=== PATIENT | male | born 1990 | race African-American/Black ===

== ENCOUNTER 2018-08-23 13:02 | Observation (INO) | payer OTHER ==
[~2018-08-23] VITALS: Ht 190.5 cm; Wt 103.4 kg
[2018-08-23 14:20] VITALS: BP 155/73
[2018-08-23 15:18] LABS: ABSOLUTE NEUTROPHILS 8.3 thou/uL (1.4-8.2); BASOPHILS 0.4 % (0.0-2.0); EOSINOPHILS 0.9 % (0.0-3.0); HEMOGLOBIN 14.1 gm/dL (14.0-18.0); LYMPHOCYTES 14.8 % (24.0-44.0); MCH 28.4 pg (26.0-34.0); MCHC 33.5 g/dL (28.0-37.0); MCV 84.9 fL (80.0-100.0); MONOCYTES 9.3 % (1.0-8.0); PLATELET COUNT 265 thou/uL (150-400); POLYS 74.6 % (36.0-66.0); RBC 4.94 mil/uL (4.50-6.00); RDW 13.2 % (10.5-14.5); WBC 11.2 thou/uL (4.0-11.0)
[2018-08-23 15:28] LABS: ALBUMIN 3.7 g/dL (3.4-5.0); CALCIUM 9.5 mg/dL (8.5-10.1); CREATININE 1.1 mg/dL (0.7-1.3); POTASSIUM 3.7 mmol/L (3.5-5.1); TOTAL BILIRUBIN 0.3 mg/dL (<0.1-1.0); TOTAL PROTEIN 8.5 g/dL (6.4-8.2)
[2018-08-23 18:18] VITALS: BP 140/66
--- NOTE | 2018-08-23 19:25 | NUR ---
Pt is a direct admit, pt came up with his mother. Pt was taken to have the procedure done shortly after admission to the floor. Post op pt verbalized that pain levels are high, medication not given since dose was not due. Will endorse to the night nurse.
[2018-08-23 19:30] VITALS: BP 143/79
[2018-08-23 20:00] VITALS: BP 140/73
[2018-08-23 21:00] VITALS: BP 133/84
--- NOTE | 2018-08-24 04:00 | NUR ---
Pt. rested quietly at intervals during the night when checked on during frequent rounds. Pain controlled with scheduled toradol. Assisted up to the bedside to use urinal and he has been able to void. No c/o nausea.
[2018-08-24 06:42] VITALS: BP 141/73
[2018-08-24 07:12] VITALS: BP 164/82
[2018-08-24 13:12] VITALS: BP 164/82
--- NOTE | 2018-08-24 14:02 | NUR ---
Pt stable, and is able to ambulate. Pt had a small bowel movement and external packing was removed. No issues verbalized by the pt. Seen by Dr. Conley, DC orders and instructions given to the pt and mother. Pt is now dc
--- NOTE | 2018-08-25 11:30 | O ---
[facility] [place], [place] [address] [address] OPERATIVE REPORT Name: HEIDY LESLIE Room #: [address] [place] [address] Rick Grier#: [id number] Admission: 08/23/18 Attend Phys: Alexander Conley MD Discharge: 08/24/18 Date of : 89 Report #: [id number] THIS REPORT FOR: //name// CC: JAMES physician/PCP Christ Conley DATE OF SERVICE: 08/23/2018 PREOPERATIVE DIAGNOSIS: Left perirectal abscess. POSTOPERATIVE DIAGNOSES: 1. Left perirectal abscess. 2. Right upper inner thigh subcutaneous abscess and procedure. PROCEDURE PERFORMED: 1. Examine under anesthesia and I and D of left perirectal abscess. 2. I and D of 2 upper inner thigh abscess x 2. COMPLICATIONS: None. SURGEON: Alexander Conley MD. BLOOD LOSS: 10 mL. DESCRIPTION OF PROCEDURE: With the patient in the lithotomy position, the buttock area was prepped and draped in sterile fashion. The patient had an abscess in the left perirectal lateral wall. There is a small tiny dot of skin that is yellowish, consistent with the site of likely to be eroded soon. A digital exam was performed. No obvious primary opening was palpated. An anoscope was placed. Due to the patient's body size, it was difficult to examine the patient. Because of his large size, the anus is way deep. The anoderm was evaluated, I did not see any obvious site of primary infection. The pus was aspirated and using a 3-way stopcock, I injected methylene blue with peroxide into the cavity and I can see the cavity fill. No came to the crypt area or in the canal. The abscess was probed also with probes and did not seem to go into any tunnel or tract. The cavity was cleaned out, irrigated and then packed with iodoform gauze. A 4 x 4, ABD were applied. The patient was then awakened and taken to recovery. Culture was sent. <ELECTRONICALLY SIGNED> By: Alexander Conley MD 08/25/18 1130 [id number] 1150 Alexander Conley MD /nt
--- NOTE | 2018-08-25 11:30 | H ---
[facility] [address] [place] [address] HISTORY AND PHYSICAL Name: HEIDY LESLIE Room #: 46- BRIEN Grier#: [id number] Admission: 08/23/18 Attend Phys: Alexander Conley MD Discharge: 08/24/18 Date of : 89 Report #: [id number] THIS REPORT FOR: //name// CC: JAMES physician/PCP Alexander Conley PREOPERATIVE DIAGNOSIS: Left perirectal abscess. HISTORY OF PRESENT ILLNESS: The patient is a 28-year-old who noticed a painful perirectal area 10 days ago. He thought this was a hemorrhoid issue. He applied cream for hemorrhoid, did not help. The patient was in urgent care last Wednesday, and he had a vasovagal event in the office. The patient was treated with pain medicine and Augmentin. The pain is better, but he still with the pain pills, but he is still having issues. He still has a pretty significant pain, and a couple of days ago, he started to have fever and night sweats. He has been trying to sit in a Sitz bath. He has not had any drainage. There is puffiness on the left side. The patient last ate at 9:30 this morning. He has had difficulty with bowel movements. He is having trouble sitting. There is family history of diabetes. The patient does not have any personal history of diabetes. PAST MEDICAL HISTORY: He is having issue with his weight. The patient denies any diabetes, heart disease. lung disease, high blood pressure, kidney or liver disease, bleeding disorder or history of blood clot. PAST SURGICAL HISTORY: He had surgery on his thumb. ALLERGIES: He is not allergic to anything. MEDICATIONS: He has started recently on Colace, Augmentin, hydrocodone. FAMILY HISTORY: Diabetes and high blood pressure. SOCIAL HISTORY: The patient works in the [employer]. He smokes cigarettes now and then. He drinks not much. REVIEW OF SYSTEMS: No upper respiratory infection. No headache, blurred vision. No weakness, numbness. No shortness of breath. PHYSICAL EXAMINATION: GENERAL: The patient is a large male. He is alert and oriented. He does not like to sit down. He does not look toxic. HEENT: His pupils react to light. Extraocular muscles are intact. Oropharynx is clear. NECK: Soft and supple, no masses. LUNGS: Clear to auscultation. HEART: Regular rate and rhythm. No murmur or gallop. [facility] [address] [place] [address] HISTORY AND PHYSICAL Name: HEIDY LESLIE Room #: 463-[facility] Rick Grier#: [id number] Admission: 08/23/18 Attend Phys: Alexander Conley MD Discharge: 08/24/18 Date of : 89 Report #: [id number] ABDOMEN: Soft, nondistended, nontender. No mass, guarding or rigidity. EXTREMITIES: No cyanosis, clubbing, edema. He moves all extremities well. RECTAL: The patient has a large perirectal abscess in the left lateral wall. He also has a fairly large size bottom, which makes the view difficult. Ultrasound of this area does show pus. There is a small area where it looked like it started to necrose. I am not able to do a digital rectal exam. IMPRESSION: The patient with a significant large perirectal abscess. He is having fevers and night sweats now. This has been last couple of days. He will need to have emergency surgery. With his size, I do not think it can be done in the office under local. We will not be able to find possible fistula that way anyway. Recommend him come to the hospital, undergo a general anesthetic. We will call the OR and let them know when he ate last. We will get a time from the OR. In the meantime, I am having him come to the hospital for observation, start IV fluids and pain medication and IV antibiotic. Likely will stay after surgery. He should be able to go home tomorrow. The procedure was discussed in detail, risk of fistula formation, bleeding, infection were discussed. The patient understands the nature of his disease and wishes to proceed. <ELECTRONICALLY SIGNED> By: Alexander Conley MD 08/25/18 1130 [id number] Alexander Conley MD /nt
== END 2018-08-24 14:59 | disposition home or self-care (01) ==
LOC: 4W 13:02
PROVIDERS: ADMIT Surgery
DX: K61.1 Rectal abscess (principal); L02.415 Cutaneous abscess of right lower limb; F17.210 Nicotine dependence, cigarettes, uncomplicated; Z79.899 Other long term (current) drug therapy; Z83.3 Family history of diabetes mellitus; Z82.49 Family history of ischemic heart disease and other diseases of the circulatory system
CPT/HCPCS: 10047; 50010; 50101; 50386; 50403; 62110; 62900; 70005